=== PATIENT | male | born 1950 | race Caucasian/White ===

== ENCOUNTER 2024-06-06 08:43 | Observation (INO) | payer MEDICARE, BC ==
[2024-05-24 12:42] VITALS: BMI 26.1
[2024-06-06] MEDS ORDERED: cefTRIAXone (ROCEPHIN) 2 GM VIAL ONE (12:34)
[2024-06-06] MEDS ORDERED: Sodium Chloride 0.9% 100 ML ONE (12:34)
[2024-06-06] MEDS ORDERED: PROPOFOL 20 ML ONE (12:59)
[2024-06-06] MEDS ORDERED: fentaNYL PF 100 MCG/2 ML SYRINGE ONE ×2 (12:59→15:35)
[2024-06-06] MEDS ORDERED: Ondansetron PF 4 MG/2 ML Vial ONE (13:00)
[2024-06-06] MEDS ORDERED: Lidocaine 1% PF 5 ML VIAL ONE (13:00)
[2024-06-06] MEDS ORDERED: Dexamethasone 4 mg/ml Vial ONE ×2 (13:00→13:40)
[2024-06-06] MEDS ORDERED: ePHEDrine Sulfate 50 MG/10 ML VIAL ONE (13:01)
[2024-06-06] MEDS ORDERED: Midazolam HCl 2 mg/2 ml Vial ONE (13:17)
[2024-06-06] MEDS ORDERED: Famotidine/PF 20 mg/2ml Vial ONE (13:18)
[2024-06-06] MEDS ORDERED: Rocuronium Bromide 10 MG/ML (10ML VIAL) ONE (13:28)
[2024-06-06] MEDS ORDERED: Glycopyrrolate 0.2 MG/ML 5 ML SYRINGE ONE (14:26)
[2024-06-06] MEDS ORDERED: SUGAMMADEX SODIUM 200 MG/2 ML VIAL ONE (14:54)
[2024-06-06] MEDS ORDERED: Oxybutynin 5 MG TAB PO PRN (15:18)
[2024-06-06] MEDS ORDERED: hydrALAZINE 20 MG/ML VIAL SLOW IVP PRN (15:18)
[2024-06-06] MEDS ORDERED: HYDROcodone/Acetaminophen 5/325 mg Tablet PO PRN ×2 (15:18)
[2024-06-06] MEDS ORDERED: Ondansetron PF 4 MG/2 ML Vial IVP PRN (15:20)
[2024-06-06 16:10] LABS: #Basophils Less than 0.03 10x3/uL (0.0-0.2); %Basophils 0.2 % (0.0-1.0); %Lymphocytes 15.1 % (21.0-51.0); %Neutrophils 80.6 % (42.0-75.0); Hematocrit 46.8 % (42.0-52.0); Hemoglobin 16.5 g/dL (14.0-18.0); Mean Corpuscular HGB CONC 35.3 g/dL (32.0-36.0); Mean Corpuscular Hemoglobin 32.4 pg (27.0-31.0); Mean Corpuscular Volume 91.8 fL (78.0-98.0); Mean Platelet Volume 10.2 fL (7.4-10.4); Platelet Count 144 10x3/uL (130-400); RBC Distribution Width 11.6 % (11.5-14.5)
[2024-06-06 16:31] LABS: Anion Gap 13 mmol/L (10-20); BUN (Urea Nitrogen) 16 mg/dL (8.4-25.7); Calc. Creatinine Clearance 88 mL/min (70-130); Calcium 8.6 mg/dL (7.8-10.44); Carbon Dioxide 21 mmol/L (23-31); Chloride 107 mmol/L (98-107); Estimated GFR 92; Glucose 104 mg/dL (83-110); Potassium 4.5 mmol/L (3.5-5.1); Sodium 136 mmol/L (136-145)
[2024-06-06] MEDS: Sodium Chloride 0.9% 1,000 ML IV SCH (18:19)
[2024-06-06] MEDS: Acetaminophen 500 MG TAB PO PRN (21:35)
[2024-06-06] MEDS: Docusate 100 MG CAP PO SCH (21:35)
[2024-06-06] MEDS: Atorvastatin Calcium 40 MG TAB PO SCH (21:35)
[2024-06-06] MEDS: Phenazopyridine HCl 100 MG TAB PO SCH (21:35)
[2024-06-06] MEDS: Famotidine/PF 20 mg/2ml Vial SLOW IVP SCH (21:35)
[2024-06-07] MEDS: cefTRIAXone\\ROCEPHIN 1 GM in Sodium Chloride 0.9% 100 ML IVPB SCH (04:37)
[2024-06-07 07:06] LABS: #Basophils Less than 0.03 10x3/uL (0.0-0.2); #Eosinophils Less than 0.03 10x3/uL (0.0-0.7); %Basophils 0.1 % (0.0-1.0); %Lymphocytes 7.5 % (21.0-51.0); %Monocytes 7.5 % (0.0-10.0); %Neutrophils 84.5 % (42.0-75.0); Hematocrit 46.1 % (42.0-52.0); Hemoglobin 16.4 g/dL (14.0-18.0); Mean Corpuscular HGB CONC 35.6 g/dL (32.0-36.0); Mean Corpuscular Hemoglobin 32.1 pg (27.0-31.0); Mean Corpuscular Volume 90.2 fL (78.0-98.0); Mean Platelet Volume 10.3 fL (7.4-10.4); Platelet Count 171 10x3/uL (130-400); RBC Distribution Width 11.5 % (11.5-14.5); Red Blood Cell (RBC) Count 5.11 mill/uL (4.70-6.10)
[2024-06-07 07:19] LABS: Anion Gap 13 mmol/L (10-20); BUN (Urea Nitrogen) 13 mg/dL (8.4-25.7); Calc. Creatinine Clearance 85 mL/min (70-130); Calcium 8.5 mg/dL (7.8-10.44); Carbon Dioxide 23 mmol/L (23-31); Chloride 108 mmol/L (98-107); Estimated GFR 91; Glucose 141 mg/dL (83-110); Potassium 4.2 mmol/L (3.5-5.1); Sodium 140 mmol/L (136-145)
[2024-06-07] MEDS: Finasteride 5 MG TAB PO SCH (08:22)
[2024-06-07] MEDS: Polyethylene Glycol 3350 17 GM Packet PO SCH (08:22)
[2024-06-07] MEDS: Tamsulosin HCl 0.4 MG CAP PO SCH (08:22)
[2024-06-07] MEDS: Carvedilol 3.125 MG TAB PO SCH (08:22)
[2024-06-07 09:06] VITALS: BP 163/80; TEMP 97.8
[2024-06-08] MEDS ORDERED: FLU (Fluad Triv) TS24-25 (65UP)/MF59C/PF 45 MCG/0.5 ML Syringe IM ONE (09:00)
== END 2024-06-07 11:32 | disposition home or self-care (01) ==
LOC: SDC 08:43 → SURG B 15:18
PROVIDERS: ADMIT Urology; ATTEND Urology
PROC: 0VT08ZZ Resection of Prostate, Via Natural or Artificial Opening Endoscopic (ICD-10-PCS; principal; 2024-06-06)
DX: N40.1 Benign prostatic hyperplasia with lower urinary tract symptoms (principal); N53.14 Retrograde ejaculation; N52.9 Male erectile dysfunction, unspecified; I10 Essential (primary) hypertension; I25.10 Atherosclerotic heart disease of native coronary artery without angina pectoris; I25.5 Ischemic cardiomyopathy; I25.2 Old myocardial infarction; E78.5 Hyperlipidemia, unspecified; E03.9 Hypothyroidism, unspecified; Z95.5 Presence of coronary angioplasty implant and graft; Z91.09 Other allergy status, other than to drugs and biological substances; Z79.899 Other long term (current) drug therapy
CPT/HCPCS: 52601; 80048 ×2; 85025 ×2; 86850; 86900; 86901; A4333; J0696 ×2; J1100; J2250; J2405; J2704; J3490 ×2; J7030 ×2; 36415; 88305